=== PATIENT | male | born 1985 | race Caucasian/White ===

== ENCOUNTER 2020-06-08 08:20 | Emergency (ER) | payer MEDICARE, MEDICAID ==
[2020-06-08] MEDS ORDERED: Sodium Chloride 0.9% 1,000 ML IV SCH (08:45)
--- NOTE | 2020-06-08 10:55 | EDM.PDOC ---
ED HPI GENERAL MEDICAL PROBLEM - General Chief Complaint: Exposure to Heat or Cold Stated Complaint: HYPOTHERMIA Time Seen by Provider: 06/08/20 08:40 Source of Information: Reports: Patient History Limitations: Reports: No Limitations - History of Present Illness INITIAL COMMENTS - FREE TEXT/NARRATIVE: Patient presented to the ED because of cold exposure. He was ejected from her GF house due to a verbal argument and he stayed at the fish house overnight. He said he is feeling cold and have hypothermia but his temp was 97.3. He also use recreational drugs like marijuana, heroin, meth. He is otherwise asymptomatic. Lower Back Pain Score (Numeric/FACES): 6 Social & Family History - Tobacco Use Tobacco Use Status *Q: Current Every Day Tobacco User Years of Tobacco use: 15 Packs/Tins Daily: 1 - Caffeine Use Caffeine Use: Reports: Coffee, Soda - Recreational Drug Use Recreational Drug Use: Yes Drug Use in Last 12 Months: Yes Recreational Drug Type: Reports: Heroin, Marijuana/Hashish, Methamphetamine Recreational Drug Use Frequency: Daily ED ROS GENERAL - Review of Systems Review Of Systems: See Below Constitutional: Reports: No Symptoms HEENT: Reports: No Symptoms Respiratory: Reports: No Symptoms Cardiovascular: Reports: No Symptoms Endocrine: Reports: No Symptoms GI/Abdominal: Reports: No Symptoms : Reports: No Symptoms Musculoskeletal: Reports: No Symptoms Skin: Reports: No Symptoms Neurological: Reports: No Symptoms Psychiatric: Reports: No Symptoms ED EXAM, GENERAL - Physical Exam Exam: See Below Exam Limited By: No Limitations General Appearance: Alert, No Apparent Distress Ears: Normal External Exam, Normal Canal, Hearing Grossly Normal Nose: Normal Inspection, Normal Mucosa, No Blood Throat/Mouth: Normal Inspection, Normal Lips, Normal Teeth Head: Atraumatic, Normocephalic Neck: Normal Inspection, Supple, Non-Tender, Full Range of Motion Respiratory/Chest: No Respiratory Distress, Lungs Clear, Normal Breath Sounds Cardiovascular: Normal Peripheral Pulses, Regular Rate, Rhythm, No Edema, No Gallop, No JVD, No Murmur GI/Abdominal: Normal Bowel Sounds, Soft, Non-Tender, No Organomegaly Back Exam: Normal Inspection, Full Range of Motion, Other Extremities: Normal Inspection, Normal Range of Motion Course - Vital Signs Text/Narrative:: Labs/EKG/CXR result was discussed with patient Last Recorded V/S: Last Vital Signs Temp 36.5 C 06/08/20 08:33 Pulse 68 06/08/20 08:33 Resp 20 06/08/20 08:33 BP 154/95 H 06/08/20 08:33 Pulse Ox 100 06/08/20 08:33 - Orders/Labs/Meds Orders: Active Orders 24 hr Category Date Time Status EKG Documentation Completion [RC] ASDIRECTED Care 06/08/20 08:42 Active Sodium Chloride 0.9% [Normal Saline] 1,000 ml Med 06/08/20 08:45 Active IV ASDIRECTED Saline Lock Insert [OM.PC] Routine Oth 06/08/20 08:43 Ordered EKG 12 Lead [EK] Routine Ther 06/08/20 08:42 Ordered Medication Orders Sodium Chloride (Normal Saline) 1,000 mls @ 999 mls/hr IV ASDIRECTED YOLIE Last Admin: 06/08/20 09:00 Dose: 999 mls/hr Documented by: ESTEBAN Labs: Laboratory Tests 06/08/20 06/08/20 06/08/20 Range/Units 09:05 09:05 09:05 WBC 7.4 (3.2-10.1) x10-3/uL RBC 4.66 (3.90-5.90) x10(6)uL Hgb 14.0 (12.9-17.7) g/dL Hct 41.8 (38.3-50.1) % MCV 89.8 (80.8-98.7) fL MCH 30.0 (27.0-33.3) pg MCHC 33.4 (28.7-35.3) g/dL RDW 13.7 (12.4-15.0) % Plt Count 170 (117-477) x10(3)uL MPV 8.4 (6.7-11.0) fL Neut % (Auto) 79.3 H (40.3-71.8) % Lymph % (Auto) 13.5 L (15.8-45.3) % [place] % (Auto) 5.0 L (5.5-15.2) % Eos % (Auto) 1.4 (0.1-6.8) % Baso % (Auto) 0.8 (0.3-3.8) % Neut # (Auto) 5.9 (1.7-6.9) x10-3/uL Lymph # (Auto) 1.0 (0.5-4.5) x10-3/uL [place] # (Auto) 0.4 (0.0-1.2) x10-3/uL Eos # (Auto) 0.1 (0.0-0.6) x10-3/uL Baso # (Auto) 0.1 (0.0-0.3) x10-3/uL Sodium 140 (135-145) mmol/L Potassium 4.0 (3.5-5.3) mmol/L Chloride 102 (100-110) mmol/L Carbon Dioxide 29 (21-32) mmol/L BUN 14 (7-18) mg/dL Creatinine 0.9 (0.70-1.30) mg/dL Est Cr Clr Drug Dosing 128.14 mL/min Estimated GFR (MDRD) > 60 (>60) BUN/Creatinine Ratio 15.6 (9-20) Glucose 108 (80-116) mg/dL Calcium 8.1 L (8.6-10.2) mg/dL Total Bilirubin 0.6 (0.1-1.3) mg/dL AST 21 (5-25) IU/L ALT 33 (12-36) U/L Alkaline Phosphatase 76 (56-112) IU/L Total Protein 6.7 (6.0-8.0) g/dL Albumin 3.9 (3.5-5.2) g/dL Globulin 2.8 g/dL Albumin/Globulin Ratio 1.4 Urine Opiates Screen (NEGATIVE) Ur Oxycodone Screen (NEGATIVE) Ur Propoxyphene Screen (NEGATIVE) Ur Barbituates Screen (NEGATIVE) Ur Tricyclics Screen (NEGATIVE) Ur Phencyclidine Scrn (NEGATIVE) Ur Amphetamine Screen (NEGATIVE) Urine MDMA Screen (NEGATIVE) U Benzodiazepines Scrn (NEGATIVE) U Cocaine Metab Screen (NEGATIVE) U Marijuana (THC) Screen (NEGATIVE) Ethyl Alcohol < 0.03 (<0.03) % 06/08/20 Range/Units 09:49 WBC (3.2-10.1) x10-3/uL RBC (3.90-5.90) x10(6)uL Hgb (12.9-17.7) g/dL Hct (38.3-50.1) % MCV (80.8-98.7) fL MCH (27.0-33.3) pg MCHC (28.7-35.3) g/dL RDW (12.4-15.0) % Plt Count (117-477) x10(3)uL MPV (6.7-11.0) fL Neut % (Auto) (40.3-71.8) % Lymph % (Auto) (15.8-45.3) % [place] % (Auto) (5.5-15.2) % Eos % (Auto) (0.1-6.8) % Baso % (Auto) (0.3-3.8) % Neut # (Auto) (1.7-6.9) x10-3/uL Lymph # (Auto) (0.5-4.5) x10-3/uL [place] # (Auto) (0.0-1.2) x10-3/uL Eos # (Auto) (0.0-0.6) x10-3/uL Baso # (Auto) (0.0-0.3) x10-3/uL Sodium (135-145) mmol/L Potassium (3.5-5.3) mmol/L Chloride (100-110) mmol/L Carbon Dioxide (21-32) mmol/L BUN (7-18) mg/dL Creatinine (0.70-1.30) mg/dL Est Cr Clr Drug Dosing mL/min Estimated GFR (MDRD) (>60) BUN/Creatinine Ratio (9-20) Glucose (80-116) mg/dL Calcium (8.6-10.2) mg/dL Total Bilirubin (0.1-1.3) mg/dL AST (5-25) IU/L ALT (12-36) U/L Alkaline Phosphatase (56-112) IU/L Total Protein (6.0-8.0) g/dL Albumin (3.5-5.2) g/dL Globulin g/dL Albumin/Globulin Ratio Urine Opiates Screen Negative (NEGATIVE) Ur Oxycodone Screen Negative (NEGATIVE) Ur Propoxyphene Screen Negative (NEGATIVE) Ur Barbituates Screen Negative (NEGATIVE) Ur Tricyclics Screen Negative (NEGATIVE) Ur Phencyclidine Scrn Negative (NEGATIVE) Ur Amphetamine Screen Negative (NEGATIVE) Urine MDMA Screen Negative (NEGATIVE) U Benzodiazepines Scrn Negative (NEGATIVE) U Cocaine Metab Screen Negative (NEGATIVE) U Marijuana (THC) Screen Positive H (NEGATIVE) Ethyl Alcohol (<0.03) % Meds: Medications Generic Name Dose Route Start Last Admin Trade Name Amy PRN Reason Stop Dose Admin Sodium Chloride 1,000 mls @ 999 mls/hr 06/08/20 08:45 06/08/20 09:00 Normal Saline IV 999 mls/hr ASDIRECTED YOLIE Administration Departure - Departure Time of Disposition: 11:00 Disposition: Home, Self-Care 01 Condition: Good Clinical Impression: Polysubstance abuse, Cold exposure - Discharge Information Instructions: Substance Use Disorder and Mental Illness, Hypothermia Prevention Referrals: Jong Latham, [Primary Care Provider] - Forms: ED Department Discharge Additional Instructions: Please read discharge instructions on polysubstance abuse Quit using drugs Call the people who can help you as mentioned by MIKAELA Gomez Sepsis Event Note (ED) - Evaluation Sepsis Screening Result: No Definite Risk - Focused Exam Vital Signs: Vital Signs Temp Pulse Resp BP Pulse Ox 06/08/20 08:33 36.5 C 68 20 154/95 H 100 - My Orders Last 24 Hours: My Active Orders 06/08/20 08:42 EKG Documentation Completion [RC] ASDIRECTED EKG 12 Lead [EK] Routine 06/08/20 08:43 Saline Lock Insert [OM.PC] Routine 06/08/20 08:45 Sodium Chloride 0.9% [Normal Saline] 1,000 ml IV ASDIRECTED - Assessment/Plan Last 24 Hours: My Active Orders 06/08/20 08:42 EKG Documentation Completion [RC] ASDIRECTED EKG 12 Lead [EK] Routine 06/08/20 08:43 Saline Lock Insert [OM.PC] Routine 06/08/20 08:45 Sodium Chloride 0.9% [Normal Saline] 1,000 ml IV ASDIRECTED
== END 2020-06-08 11:30 | disposition home or self-care (01) ==
LOC: FB.ED 08:20
DX: T69.9XXA Effect of reduced temperature, unspecified, initial encounter (principal); F12.10 Cannabis abuse, uncomplicated; Z72.0 Tobacco use
CPT/HCPCS: 36415; 80053; 80305-QW; 80307; 85025; 93005; 99284-25; J7030

== ENCOUNTER 2020-10-20 21:24 | Emergency (ER) | payer MEDICAID, MEDICARE ==
--- NOTE | 2020-10-20 22:04 | EDM.PDOC ---
ED HPI GENERAL MEDICAL PROBLEM - General Stated Complaint: POSSIBLE UTI Time Seen by Provider: 10/20/20 21:50 Source of Information: Reports: Patient History Limitations: Reports: No Limitations - History of Present Illness INITIAL COMMENTS - FREE TEXT/NARRATIVE: Patient presented to the ED because of dysuria and penile discharge. He said he has been sleeping with 2 different women and doesn't if they have STD or not and want to be tested. - Related Data Allergies Allergy/AdvReac Type Severity Reaction Status Date / Time amoxicillin Allergy Hives Verified 10/20/20 22:07 codeine Allergy Hives Verified 10/20/20 22:07 divalproex sodium Allergy Hives Verified 10/20/20 22:07 [From Depakote] methylphenidate Allergy Agitation Verified 10/20/20 22:07 [From Ritalin] pemoline [From Cylert] Allergy Airway Verified 10/20/20 22:07 Tightness Penicillins Allergy Hives Verified 10/20/20 22:07 Home Meds: Home Meds Sulfamethoxazole/Trimethoprim [Bactrim Ds Tablet] 1 each PO BID #14 tablet 10/21/20 [Rx] Past Medical History Respiratory History: Reports: COPD Psychiatric History: Reports: Addiction, PTSD Social & Family History - Family History Family Medical History: No Pertinent Family History - Caffeine Use Caffeine Use: Reports: Coffee, Soda ED ROS GENERAL - Review of Systems Review Of Systems: See Below Constitutional: Reports: No Symptoms HEENT: Reports: No Symptoms Respiratory: Reports: No Symptoms Cardiovascular: Reports: No Symptoms Endocrine: Reports: No Symptoms GI/Abdominal: Reports: No Symptoms : Reports: No Symptoms Musculoskeletal: Reports: No Symptoms Skin: Reports: No Symptoms Neurological: Reports: No Symptoms Psychiatric: Reports: No Symptoms Hematologic/Lymphatic: Reports: No Symptoms ED EXAM, GENERAL - Physical Exam Exam: See Below Exam Limited By: No Limitations General Appearance: Alert, No Apparent Distress Ears: Normal External Exam, Normal Canal Nose: Normal Inspection, Normal Mucosa Throat/Mouth: Normal Inspection, Normal Lips Head: Atraumatic, Normocephalic Neck: Normal Inspection, Supple, Non-Tender Respiratory/Chest: No Respiratory Distress, Lungs Clear, Normal Breath Sounds Cardiovascular: Normal Peripheral Pulses, Regular Rate, Rhythm, No Edema GI/Abdominal: Normal Bowel Sounds, Soft, Non-Tender, No Organomegaly Back Exam: Normal Inspection, Full Range of Motion Extremities: Normal Inspection, Normal Range of Motion, Non-Tender Neurological: Alert, Oriented, CN II-XII Intact, Normal Cognition Psychiatric: Normal Affect, Normal Mood Skin Exam: Warm, Dry, Intact, Normal Color, No Rash Lymphatic: No Adenopathy Course - Vital Signs Text/Narrative:: UC-pending g/C probe-pending Last Recorded V/S: Last Vital Signs Temp 37.5 C 10/20/20 21:48 Pulse 91 10/20/20 21:48 Resp 18 10/20/20 21:48 BP 124/76 10/20/20 21:48 Pulse Ox 98 10/20/20 21:48 - Orders/Labs/Meds Orders: Active Orders 24 hr Category Date Time Status CHLAMYDIA/GC AMPLIFICATION Stat Lab 10/20/20 21:56 Received CULTURE URINE [RM] Stat Lab 10/20/20 21:56 Received Labs: Laboratory Tests 10/20/20 Range/Units 22:07 Urine Color Yellow (YELLOW) Urine Appearance Slightly cloudy (CLEAR) Urine pH 5.0 (5.0-6.5) Ur Specific [place] 1.030 H (1.010-1.025) Urine Protein 500 H (NEGATIVE) mg/dL Urine Glucose (UA) Normal (NORMAL) mg/dL Urine Ketones Negative (NEGATIVE) mg/dL Urine Occult Blood Moderate H (NEGATIVE) Urine Nitrite Negative (NEGATIVE) Urine Bilirubin Small H (NEGATIVE) Urine Urobilinogen 4 H (NEGATIVE) mg/dL Ur Leukocyte Esterase Moderate H (NEGATIVE) Urine RBC 5-10 H (0-5) Urine WBC 50-75 H (0-5) Ur Squamous Epith Cells Few H (NS,R,O) Urine Bacteria Few H (NS) Departure - Departure Time of Disposition: 22:10 Disposition: Home, Self-Care 01 Condition: Good Clinical Impression: STD exposure, UTI (urinary tract infection) - Discharge Information Prescriptions: Sulfamethoxazole/Trimethoprim [Bactrim Ds Tablet] 1 each PO BID #14 tablet Instructions: Urethritis, Adult, Urinary Tract Infection, Adult, [id number] Referrals: PCP,None [Primary Care Provider] - Forms: ED Department Discharge Additional Instructions: Please read discharge instructions on STD exposure WE will call you once we have the lab results Practice safe sex Bactrim DS twice daily for 7 days Sepsis Event Note (ED) - Focused Exam Vital Signs: Vital Signs Temp Pulse Resp BP Pulse Ox 10/20/20 21:48 37.5 C 91 18 124/76 98 - My Orders Last 24 Hours: My Active Orders 10/20/20 21:56 CHLAMYDIA/GC AMPLIFICATION Stat CULTURE URINE [] Stat - Assessment/Plan Last 24 Hours: My Active Orders 10/20/20 21:56 CHLAMYDIA/GC AMPLIFICATION Stat CULTURE URINE [] Stat
[2020-10-23 08:12] LABS: CHLAMYDIA TRACHOMATIS, NAA Negative (Negative); NEISSERIA GONORRHOEAE, NAA Negative (Negative)
== END 2020-10-20 22:12 | disposition home or self-care (01) ==
LOC: FB.ED 21:24
DX: N39.0 Urinary tract infection, site not specified (principal); J44.9 Chronic obstructive pulmonary disease, unspecified; Z88.0 Allergy status to penicillin; Z88.1 Allergy status to other antibiotic agents; Z88.5 Allergy status to narcotic agent; Z20.2 Contact with and (suspected) exposure to infections with a predominantly sexual mode of transmission
CPT/HCPCS: 81001; 87086; 87491; 87591; 99283

== ENCOUNTER 2020-11-23 04:27 | Emergency (ER) | payer MEDICARE ==
[2020-11-23] MEDS ORDERED: OLANZapine 10 MG Vial IM STA (05:08)
[2020-11-23] MEDS ORDERED: Sodium Chloride 0.9% 10 ML Syringe FLUSH PRN (05:08)
[2020-11-23] MEDS ORDERED: LORazepam 2 MG/ML SDV IVPUSH STA (05:08)
[2020-11-23] MEDS ORDERED: Ketorolac 30 MG/ML SDV IVPUSH STA (05:08)
[2020-11-23] MEDS ORDERED: Sodium Chloride 0.9% 1,000 ML IV SCH (05:15)
--- NOTE | 2020-11-23 06:12 | EDM.PDOC ---
ED HPI GENERAL MEDICAL PROBLEM - General Chief Complaint: Drug or Alcohol Abuse Stated Complaint: WITHDRAWLS Time Seen by Provider: 11/23/20 04:40 Source of Information: Reports: Patient History Limitations: Reports: No Limitations - History of Present Illness INITIAL COMMENTS - FREE TEXT/NARRATIVE: Patient presented to the ED because of anxiety, insomnia, bilateral lower extre mity pain and poor appetite. He said he use Meth daily but has not use one jose week and now he feels like he is withdrawing. He denies any hallucinations, suicidal or homicidal thoughts.. Generalized Pain Score (Numeric/FACES): 7 - Related Data Allergies Allergy/AdvReac Type Severity Reaction Status Date / Time amoxicillin Allergy Hives Verified 10/20/20 22:07 codeine Allergy Hives Verified 10/20/20 22:07 divalproex sodium Allergy Hives Verified 10/20/20 22:07 [From Depakote] methylphenidate Allergy Agitation Verified 10/20/20 22:07 [From Ritalin] pemoline [From Cylert] Allergy Airway Verified 10/20/20 22:07 Tightness Penicillins Allergy Hives Verified 10/20/20 22:07 Past Medical History Respiratory History: Reports: COPD Psychiatric History: Reports: Addiction, PTSD Social & Family History - Family History Family Medical History: No Pertinent Family History - Tobacco Use Tobacco Use Status *Q: Current Every Day Tobacco User Years of Tobacco use: 20 Packs/Tins Daily: 0.5 - Caffeine Use Caffeine Use: Reports: Soda - Recreational Drug Use Recreational Drug Use: Yes Drug Use in Last 12 Months: Yes Recreational Drug Type: Reports: Marijuana/Hashish, Methamphetamine Recreational Drug Use Frequency: Daily Recreational Drug Last Use: 11/23/20 ED ROS GENERAL - Review of Systems Review Of Systems: See Below Constitutional: Reports: Decreased Appetite HEENT: Reports: No Symptoms Respiratory: Reports: No Symptoms Cardiovascular: Reports: No Symptoms Endocrine: Reports: No Symptoms GI/Abdominal: Reports: No Symptoms : Reports: No Symptoms Musculoskeletal: Reports: Back Pain, Leg Pain Skin: Reports: No Symptoms Neurological: Reports: No Symptoms Psychiatric: Reports: Agitation, Anxiety ED EXAM, GENERAL - Physical Exam Exam: See Below Exam Limited By: No Limitations General Appearance: Alert, No Apparent Distress Ears: Normal External Exam, Normal Canal Nose: Normal Inspection, Normal Mucosa, No Blood Throat/Mouth: Normal Inspection, Normal Lips, Normal Teeth Head: Atraumatic, Normocephalic Neck: Normal Inspection, Supple, Non-Tender, Full Range of Motion Respiratory/Chest: No Respiratory Distress, Lungs Clear, Normal Breath Sounds Cardiovascular: Normal Peripheral Pulses, Regular Rate, Rhythm, No Edema, No Gallop, No JVD, No Murmur, No Rub GI/Abdominal: Normal Bowel Sounds, Soft, Non-Tender, No Organomegaly, No Distention, No Abnormal Bruit Back Exam: Normal Inspection, Full Range of Motion Extremities: Normal Inspection, Normal Range of Motion, Non-Tender, No Pedal Edema, Normal Capillary Refill Neurological: Alert, Oriented, CN II-XII Intact, Normal Cognition, Normal Gait, Normal Reflexes, No Motor/Sensory Deficits Psychiatric: Anxious, Tearful Skin Exam: Warm Course - Vital Signs Text/Narrative:: Lab result was reviewed and discussed with patient NS 1 L bolus Ativan 1 mg IV x1 Zyprexa 10 mg IM x1 Toradol 30 mg IV x1 Last Recorded V/S: Last Vital Signs Temp 36.6 C 11/23/20 04:38 Pulse 86 11/23/20 04:38 Resp 20 11/23/20 04:38 BP 143/82 H 11/23/20 04:38 Pulse Ox 95 11/23/20 04:38 - Orders/Labs/Meds Orders: Active Orders 24 hr Category Date Time Status COMPREHENSIVE METABOLIC PN,CMP [CHEM] Stat Lab 11/23/20 05:28 Results Sodium Chloride 0.9% [Normal Saline] 1,000 ml Med 11/23/20 05:15 Active IV ASDIRECTED Sodium Chloride 0.9% [Saline Flush] Med 11/23/20 05:08 Active 10 ml FLUSH ASDIRECTED PRN Saline Lock Insert [OM.PC] Routine Oth 11/23/20 05:08 Ordered Medication Orders Sodium Chloride (Normal Saline) 1,000 mls @ 999 mls/hr IV ASDIRECTED YOLIE Last Admin: 11/23/20 05:34 Dose: 999 mls/hr Documented by: LORNA Sodium Chloride (Sodium Chloride 0.9% 10 Ml Syringe) 10 ml FLUSH ASDIRECTED PRN PRN Reason: Keep Vein Open Labs: Laboratory Tests 11/23/20 11/23/20 11/23/20 Range/Units 05:25 05:28 05:28 WBC 6.8 (3.2-10.1) x10-3/uL RBC 4.15 (3.90-5.90) x10(6)uL Hgb 13.0 (12.9-17.7) g/dL Hct 37.7 L (38.3-50.1) % MCV 91.0 (80.8-98.7) fL MCH 31.3 (27.0-33.3) pg MCHC 34.4 (28.7-35.3) g/dL RDW 13.3 (12.4-15.0) % Plt Count 159 (117-477) x10(3)uL MPV 8.5 (6.7-11.0) fL Neut % (Auto) 60.2 (40.3-71.8) % Lymph % (Auto) 27.3 (15.8-45.3) % [place] % (Auto) 8.4 (5.5-15.2) % Eos % (Auto) 2.9 (0.1-6.8) % Baso % (Auto) 1.2 (0.3-3.8) % Neut # (Auto) 4.1 (1.7-6.9) x10-3/uL Lymph # (Auto) 1.8 (0.5-4.5) x10-3/uL [place] # (Auto) 0.6 (0.0-1.2) x10-3/uL Eos # (Auto) 0.2 (0.0-0.6) x10-3/uL Baso # (Auto) 0.1 (0.0-0.3) x10-3/uL Sodium 142 (135-145) mmol/L Potassium 3.8 (3.5-5.3) mmol/L Chloride 105 (100-110) mmol/L Carbon Dioxide 26 (21-32) mmol/L Urine Opiates Screen Negative (NEGATIVE) Ur Oxycodone Screen Negative (NEGATIVE) Ur Propoxyphene Screen Negative (NEGATIVE) Ur Barbituates Screen Negative (NEGATIVE) Ur Tricyclics Screen Negative (NEGATIVE) Ur Phencyclidine Scrn Negative (NEGATIVE) Ur Amphetamine Screen Positive H (NEGATIVE) Urine MDMA Screen Negative (NEGATIVE) U Benzodiazepines Scrn Negative (NEGATIVE) U Cocaine Metab Screen Negative (NEGATIVE) U Marijuana (THC) Screen Positive H (NEGATIVE) Ethyl Alcohol (<0.03) % 11/23/20 Range/Units 05:28 WBC (3.2-10.1) x10-3/uL RBC (3.90-5.90) x10(6)uL Hgb (12.9-17.7) g/dL Hct (38.3-50.1) % MCV (80.8-98.7) fL MCH (27.0-33.3) pg MCHC (28.7-35.3) g/dL RDW (12.4-15.0) % Plt Count (117-477) x10(3)uL MPV (6.7-11.0) fL Neut % (Auto) (40.3-71.8) % Lymph % (Auto) (15.8-45.3) % [place] % (Auto) (5.5-15.2) % Eos % (Auto) (0.1-6.8) % Baso % (Auto) (0.3-3.8) % Neut # (Auto) (1.7-6.9) x10-3/uL Lymph # (Auto) (0.5-4.5) x10-3/uL [place] # (Auto) (0.0-1.2) x10-3/uL Eos # (Auto) (0.0-0.6) x10-3/uL Baso # (Auto) (0.0-0.3) x10-3/uL Sodium (135-145) mmol/L Potassium (3.5-5.3) mmol/L Chloride (100-110) mmol/L Carbon Dioxide (21-32) mmol/L Urine Opiates Screen (NEGATIVE) Ur Oxycodone Screen (NEGATIVE) Ur Propoxyphene Screen (NEGATIVE) Ur Barbituates Screen (NEGATIVE) Ur Tricyclics Screen (NEGATIVE) Ur Phencyclidine Scrn (NEGATIVE) Ur Amphetamine Screen (NEGATIVE) Urine MDMA Screen (NEGATIVE) U Benzodiazepines Scrn (NEGATIVE) U Cocaine Metab Screen (NEGATIVE) U Marijuana (THC) Screen (NEGATIVE) Ethyl Alcohol < 0.03 (<0.03) % Meds: Medications Generic Name Dose Route Start Last Admin Trade Name Freq PRN Reason Stop Dose Admin Sodium Chloride 1,000 mls @ 999 mls/hr 11/23/20 05:15 11/23/20 05:34 Normal Saline IV 999 mls/hr ASDIRECTED YOLIE Administration Sodium Chloride 10 ml 11/23/20 05:08 Sodium Chloride 0.9% 10 Ml Syringe FLUSH ASDIRECTED PRN Keep Vein Open Discontinued Medications Generic Name Dose Route Start Last Admin Trade Name Freq PRN Reason Stop Dose Admin Ketorolac Tromethamine 30 mg 11/23/20 05:08 11/23/20 05:35 Ketorolac 30 Mg/Ml Sdv IVPUSH 11/23/20 05:09 30 mg NOW STA Administration Lorazepam 1 mg 11/23/20 05:08 11/23/20 05:35 Lorazepam 2 Mg/Ml Sdv IVPUSH 11/23/20 05:09 1 mg NOW STA Administration Olanzapine 10 mg 11/23/20 05:08 11/23/20 05:34 Olanzapine 10 Mg Vial IM 11/23/20 05:09 10 mg NOW STA Administration Departure - Departure Time of Disposition: 10:30 Disposition: Home, Self-Care 01 Condition: Good Clinical Impression: Polysubstance abuse, Dehydration - Discharge Information Referrals: PCP,None [Primary Care Provider] - Additional Instructions: Please read discharge instructions on polysubstance abuse Tell your doctor to refer you for chemical dependency treatment before it's too late Keep your appointment with Dr Latham @ 11:30 AM today Sepsis Event Note (ED) - Evaluation Sepsis Screening Result: No Definite Risk - Focused Exam Vital Signs: Vital Signs Temp Pulse Resp BP Pulse Ox 11/23/20 04:38 36.6 C 86 20 143/82 H 95 - My Orders Last 24 Hours: My Active Orders 11/23/20 05:08 Sodium Chloride 0.9% [Saline Flush] 10 ml FLUSH ASDIRECTED PRN Saline Lock Insert [OM.PC] Routine 11/23/20 05:15 Sodium Chloride 0.9% [Normal Saline] 1,000 ml IV ASDIRECTED 11/23/20 05:28 COMPREHENSIVE METABOLIC PN,CMP [CHEM] Stat - Assessment/Plan Last 24 Hours: My Active Orders 11/23/20 05:08 Sodium Chloride 0.9% [Saline Flush] 10 ml FLUSH ASDIRECTED PRN Saline Lock Insert [OM.PC] Routine 11/23/20 05:15 Sodium Chloride 0.9% [Normal Saline] 1,000 ml IV ASDIRECTED 11/23/20 05:28 COMPREHENSIVE METABOLIC PN,CMP [CHEM] Stat
== END 2020-11-23 10:45 | disposition home or self-care (01) ==
LOC: FB.ED 04:27
DX: F19.10 Other psychoactive substance abuse, uncomplicated (principal); E86.0 Dehydration; J44.9 Chronic obstructive pulmonary disease, unspecified; Z72.0 Tobacco use
CPT/HCPCS: 36415; 80053; 80305; 80307; 85025; 96372; 96374; 96375; 99284; J1885; J2060; J3490; J7030

== ENCOUNTER 2020-11-28 16:57 | Emergency (ER) | payer MEDICARE ==
[2020-11-28] MEDS ORDERED: LORazepam 2 MG/ML SDV IVPUSH ONE (17:17)
[2020-11-28] MEDS ORDERED: Sodium Chloride 0.9% 500 ML IV ONE (17:21)
[2020-11-28] MEDS ORDERED: Sodium Chloride 0.9% 1,000 ML IV SCH (17:30)
[2020-11-28] MEDS: LORazepam 2 MG/ML SDV IVPUSH ONE ×2 (17:36→18:00)
--- NOTE | 2020-11-28 17:44 | EDM.PDOC ---
ED HPI GENERAL MEDICAL PROBLEM - General Stated Complaint: WITHDRAWLS Time Seen by Provider: 11/28/20 17:05 Source of Information: Reports: Patient History Limitations: Reports: No Limitations - History of Present Illness INITIAL COMMENTS - FREE TEXT/NARRATIVE: 35-year-old male who presents to the emergency department via private vehicle secondary to difficulty breathing, sweating and "withdrawing from meth". He is quite agitated and reports that he last used meth 5 days ago and he reports that he is withdrawing and he feels "like crap all over" and "like I'm dying" and he reports pain all over his body. His thought processes appear to be quite disorganized. He is oriented to person and place he tells us that he is having no suicidal or homicidal ideations but also tells me that he does want to be . He is tearful and quite sad-appearing at times and then angry and on the verge of aggression and violence at other times. His O2 sats were difficult to read upon arrival but he appeared to be in the lower 80s on room air. He was placed on a mask at 6 L initially but he was unable to tolerate the mask and he was switched to nasal cannula. With the nasal cannula at 6 L/m we cannot get a good Plath and I am unsure what his sat is at this point. He denies any chest pain. He does admit to generalized body pains that he would rated as a 7-8/10. He has had some nausea but no vomiting. He apparently present this emergency department on 11/23/2020 secondary to "withdrawal" at that time as well and all of his labs were normal. He was minimally and hemodynamically and respiratory stable at that point and was discharged with outpatient follow-up with Dr. Latham. The patient was apparently put on Suboxone and he states that he took his first dose today. He states that he has been taking his medicines as he was directed. He denies any abdominal pain. He reports that difficulty breathing and sweating just began this afternoon. Patient was also complaining of double vision. There are no other associated signs or symptoms. There are no other modifying factors. Onset: Today Duration: Getting Worse Location: Reports: Generalized Quality: Reports: Other (Patient unable) Severity: Moderate (to severe) Improves with: Reports: None Worsens with: Reports: None Context: Reports: Other (As above) Associated Symptoms: Reports: No Other Symptoms (Except as above) Treatments TECHNICAL SOLUTIONS CONSULTANT: Reports: Other (see below) (Suboxone) - Related Data Allergies Allergy/AdvReac Type Severity Reaction Status Date / Time amoxicillin Allergy Hives Verified 10/20/20 22:07 codeine Allergy Hives Verified 10/20/20 22:07 divalproex sodium Allergy Hives Verified 10/20/20 22:07 [From Depakote] methylphenidate Allergy Agitation Verified 10/20/20 22:07 [From Ritalin] pemoline [From Cylert] Allergy Airway Verified 10/20/20 22:07 Tightness Penicillins Allergy Hives Verified 10/20/20 22:07 Home Meds: Home Meds Buprenorphine HCl/Naloxone HCl [Suboxone 4 mg-1 mg Sl Film] 8 mg SL DAILY 11/28/20 [History] Past Medical History Respiratory History: Reports: COPD Psychiatric History: Reports: Addiction (Amphetamine abuse), Anxiety, Depression, PTSD Social & Family History - Tobacco Use Tobacco Use Status *Q: Current Every Day Tobacco User - Caffeine Use Caffeine Use: Reports: Soda - Recreational Drug Use Recreational Drug Type: Reports: Methamphetamine - Living Situation & Occupation Occupation: Other (Homeless) ED ROS GENERAL - Review of Systems Review Of Systems: Unable To Obtain Reason Not Obtained: Agitation. Disorganized thoughts. ED EXAM, GENERAL - Physical Exam Exam: See Below Exam Limited By: No Limitations General Appearance: Alert, WD/WN, Severe Distress (Vital agitated. His O2 saturations are in the low 80s on room air.) Eye Exam: Bilateral Eye: EOMI, Normal Inspection (Sclerae are anicteric), PERRL Ears: Normal External Exam, Hearing Grossly Normal Ear Exam: Bilateral Ear: Auricle Normal Nose: Normal Inspection, Normal Mucosa, No Blood Throat/Mouth: Normal Voice, No Airway Compromise, Other (Dry mucous membranes) Head: Atraumatic, Normocephalic Neck: Normal Inspection, Supple, Non-Tender, Full Range of Motion Respiratory/Chest: Lungs Clear, Normal Breath Sounds, Chest Non-Tender, Other (Increased respiratory rate.) Cardiovascular: Normal Peripheral Pulses, Regular Rate, Rhythm, No Murmur Peripheral Pulses: 2+: Radial (L), Radial (R), Dorsalis Pedis (L), Dorsalis Pedis (R) GI/Abdominal: Normal Bowel Sounds, Soft, Non-Tender Back Exam: Normal Inspection Extremities: Normal Inspection, Normal Range of Motion, Non-Tender, No Pedal Edema, Other (Hands are pale and somewhat cool) Neurological: Alert, CN II-XII Intact, No Motor/Sensory Deficits Psychiatric: Other (Agitated) Skin Exam: Intact, Diaphoretic, Pallor (Pale in his hands and feet.) #1 Interpretation EKG Date: 11/28/20 Time: 17:47 Rhythm: NSR (Sinus bradycardia) Rate (Beats/Min): 44 [place]: Normal P-Wave: Present QRS: Normal ST-T: Normal QT: Prolonged Comparison: No Change (No significant change from EKG performed on 06/08/2020) #2 Interpretation EKG Date: 11/28/20 Time: 17:10 Rhythm: NSR Rate (Beats/Min): 57 [place]: Normal P-Wave: Present QRS: Normal ST-T: Normal QT: Prolonged Comparison: No Change (Despite artifact it is unchanged from EKG that was performed later.) EKG Interpretation Comments: Marked artifact made her mentation difficult. This EKG was repeated and is documented above. Course - Vital Signs Last Recorded V/S: Last Vital Signs Temp 35.3 C L 11/28/20 16:59 Pulse 59 L 11/28/20 16:59 Resp 30 H 11/28/20 16:59 BP 129/102 H 11/28/20 16:59 Pulse Ox 83 L 11/28/20 16:59 - Orders/Labs/Meds Orders: Active Orders 24 hr Category Date Time Status EKG Documentation Completion [RC] ASDIRECTED Care 11/28/20 17:19 Active Chest 1V Frontal [CR] Stat Exams 11/28/20 17:18 Taken CRP [C-REACTIVE PROTEIN] [CHEM] Stat Lab 11/28/20 19:09 Ordered DRUG SCREEN, URINE ALERE [URCHEM] Stat Lab 11/28/20 17:20 Ordered Sodium Chloride 0.9% [Normal Saline] 1,000 ml Med 11/28/20 17:30 Active IV ASDIRECTED Sodium Chloride 0.9% [Saline Flush] Med 11/28/20 17:18 Active 10 ml FLUSH ASDIRECTED PRN Peripheral IV Insertion Adult [OM.PC] Routine Oth 11/28/20 17:18 Ordered EKG 12 Lead [EK] Routine Ther 11/28/20 17:18 Ordered Medication Orders Sodium Chloride (Normal Saline) 1,000 mls @ 150 mls/hr IV ASDIRECTED YOLIE Sodium Chloride (Sodium Chloride 0.9% 10 Ml Syringe) 10 ml FLUSH ASDIRECTED PRN PRN Reason: Keep Vein Open Labs: Laboratory Tests 11/28/20 11/28/20 11/28/20 Range/Units 17:20 17:20 17:20 WBC 8.7 (3.2-10.1) x10-3/uL RBC 5.23 (3.90-5.90) x10(6)uL Hgb 16.1 D (12.9-17.7) g/dL Hct 47.7 D (38.3-50.1) % MCV 91.1 (80.8-98.7) fL MCH 30.7 (27.0-33.3) pg MCHC 33.7 (28.7-35.3) g/dL RDW 13.3 (12.4-15.0) % Plt Count 215 (117-477) x10(3)uL MPV 8.5 (6.7-11.0) fL Neut % (Auto) 63.5 (40.3-71.8) % Lymph % (Auto) 26.6 (15.8-45.3) % Elbert % (Auto) 7.7 (5.5-15.2) % Eos % (Auto) 0.8 (0.1-6.8) % Baso % (Auto) 1.4 (0.3-3.8) % Neut # (Auto) 5.5 (1.7-6.9) x10-3/uL Lymph # (Auto) 2.3 (0.5-4.5) x10-3/uL Elbert # (Auto) 0.7 (0.0-1.2) x10-3/uL Eos # (Auto) 0.1 (0.0-0.6) x10-3/uL Baso # (Auto) 0.1 (0.0-0.3) x10-3/uL D-Dimer, Quantitative (0.0-0.59) mg/LFEU POC VBG pH (7.32-7.43) pH Units POC VBG pCO2 (41-51) mmHg POC VBG HCO3 (21-29) mmol/L VBG Base Excess (-2-3) mmol/L O2 Delivery Device Sodium 143 (135-145) mmol/L Potassium 3.8 (3.5-5.3) mmol/L Chloride 100 D (100-110) mmol/L Carbon Dioxide 27 (21-32) mmol/L BUN 26 H (7-18) mg/dL Creatinine 1.3 (0.70-1.30) mg/dL Est Cr Clr Drug Dosing TNP Estimated GFR (MDRD) > 60 (>60) BUN/Creatinine Ratio 20.0 (9-20) Glucose 147 H (80-116) mg/dL Lactic Acid (0.4-2.0) mmol/L Calcium 9.8 (8.6-10.2) mg/dL Magnesium 2.0 (1.8-2.5) mg/dL Total Bilirubin 1.3 (0.1-1.3) mg/dL AST 27 H D (5-25) IU/L ALT 41 H D (12-36) U/L Alkaline Phosphatase 107 (56-112) IU/L Troponin I 5.4 (4.0-60.3) pg/mL Total Protein 8.3 H (6.0-8.0) g/dL Albumin 4.7 (3.5-5.2) g/dL Globulin 3.6 g/dL Albumin/Globulin Ratio 1.3 Ethyl Alcohol (<0.03) % 11/28/20 11/28/20 11/28/20 Range/Units 17:20 17:20 17:20 WBC (3.2-10.1) x10-3/uL RBC (3.90-5.90) x10(6)uL Hgb (12.9-17.7) g/dL Hct (38.3-50.1) % MCV (80.8-98.7) fL MCH (27.0-33.3) pg MCHC (28.7-35.3) g/dL RDW (12.4-15.0) % Plt Count (117-477) x10(3)uL MPV (6.7-11.0) fL Neut % (Auto) (40.3-71.8) % Lymph % (Auto) (15.8-45.3) % Elbert % (Auto) (5.5-15.2) % Eos % (Auto) (0.1-6.8) % Baso % (Auto) (0.3-3.8) % Neut # (Auto) (1.7-6.9) x10-3/uL Lymph # (Auto) (0.5-4.5) x10-3/uL Elbert # (Auto) (0.0-1.2) x10-3/uL Eos # (Auto) (0.0-0.6) x10-3/uL Baso # (Auto) (0.0-0.3) x10-3/uL D-Dimer, Quantitative 0.28 (0.0-0.59) mg/LFEU POC VBG pH (7.32-7.43) pH Units POC VBG pCO2 (41-51) mmHg POC VBG HCO3 (21-29) mmol/L VBG Base Excess (-2-3) mmol/L O2 Delivery Device Sodium (135-145) mmol/L Potassium (3.5-5.3) mmol/L Chloride (100-110) mmol/L Carbon Dioxide (21-32) mmol/L BUN (7-18) mg/dL Creatinine (0.70-1.30) mg/dL Est Cr Clr Drug Dosing Estimated GFR (MDRD) (>60) BUN/Creatinine Ratio (9-20) Glucose (80-116) mg/dL Lactic Acid 2.2 H* (0.4-2.0) mmol/L Calcium (8.6-10.2) mg/dL Magnesium (1.8-2.5) mg/dL Total Bilirubin (0.1-1.3) mg/dL AST (5-25) IU/L ALT (12-36) U/L Alkaline Phosphatase (56-112) IU/L Troponin I (4.0-60.3) pg/mL Total Protein (6.0-8.0) g/dL Albumin (3.5-5.2) g/dL Globulin g/dL Albumin/Globulin Ratio Ethyl Alcohol < 0.03 (<0.03) % / Range/Units 17:20 WBC (3.2-10.1) x10-3/uL RBC (3.90-5.90) x10(6)uL Hgb (12.9-17.7) g/dL Hct (38.3-50.1) % MCV (80.8-98.7) fL MCH (27.0-33.3) pg MCHC (28.7-35.3) g/dL RDW (12.4-15.0) % Plt Count (117-477) x10(3)uL MPV (6.7-11.0) fL Neut % (Auto) (40.3-71.8) % Lymph % (Auto) (15.8-45.3) % Elbert % (Auto) (5.5-15.2) % Eos % (Auto) (0.1-6.8) % Baso % (Auto) (0.3-3.8) % Neut # (Auto) (1.7-6.9) x10-3/uL Lymph # (Auto) (0.5-4.5) x10-3/uL [place]bert # (Auto) (0.0-1.2) x10-3/uL Eos # (Auto) (0.0-0.6) x10-3/uL Baso # (Auto) (0.0-0.3) x10-3/uL D-Dimer, Quantitative (0.0-0.59) mg/LFEU POC VBG pH 7.50 H (7.32-7.43) pH Units POC VBG pCO2 36 L (41-51) mmHg POC VBG HCO3 28 (21-29) mmol/L VBG Base Excess 5 H (-2-3) mmol/L O2 Delivery Device Nasal cannula Sodium (135-145) mmol/L Potassium (3.5-5.3) mmol/L Chloride (100-110) mmol/L Carbon Dioxide (21-32) mmol/L BUN (7-18) mg/dL Creatinine (0.70-1.30) mg/dL Est Cr Clr Drug Dosing Estimated GFR (MDRD) (>60) BUN/Creatinine Ratio (9-20) Glucose (80-116) mg/dL Lactic Acid (0.4-2.0) mmol/L Calcium (8.6-10.2) mg/dL Magnesium (1.8-2.5) mg/dL Total Bilirubin (0.1-1.3) mg/dL AST (5-25) IU/L ALT (12-36) U/L Alkaline Phosphatase (56-112) IU/L Troponin I (4.0-60.3) pg/mL Total Protein (6.0-8.0) g/dL Albumin (3.5-5.2) g/dL Globulin g/dL Albumin/Globulin Ratio Ethyl Alcohol (<0.03) % Meds: Medications Generic Name Dose Route Start Last Admin Trade Name Freq PRN Reason Stop Dose Admin Sodium Chloride 1,000 mls @ 150 mls/hr 11/28/20 17:30 Normal Saline IV ASDIRECTED YOLIE Sodium Chloride 10 ml 11/28/20 17:18 Sodium Chloride 0.9% 10 Ml Syringe FLUSH ASDIRECTED PRN Keep Vein Open Discontinued Medications Generic Name Dose Route Start Last Admin Trade Name Freq PRN Reason Stop Dose Admin Sodium Chloride 500 mls @ 999 mls/hr 11/28/20 17:21 11/28/20 17:28 Normal Saline IV 11/28/20 17:51 999 mls/hr .BOLUS ONE Administration Lorazepam 1 mg 11/28/20 17:17 11/28/20 17:26 Lorazepam 2 Mg/Ml Sdv IVPUSH 11/28/20 17:18 1 mg ONETIME ONE Administration Lorazepam 2 mg 11/28/20 17:27 Lorazepam 2 Mg/Ml Sdv IVPUSH 11/28/20 17:28 ONETIME ONE - Radiology Interpretation Free Text/Narrative:: Portable chest x-ray shows no acute disease. - Re-Assessments/Exams Free Text/Narrative Re-Assessment/Exam: 11/28/20 17:50: Patient has received 2 mg of Ativan IV now and he is much more calm. He is sleeping. He was having some O2 desaturations but it seemed to be related to mouth breathing and when he increased his respiratory rate and closed his mouth, his O2 saturations went up to 100%. His EKG was reassuringly normal. His blood cell count was normal. His hemoglobin was 16.1. His platelet count was normal. A serum electrolyte profile is normal. Magnesium was normal. A glucose was 147. A venous blood gas showed a pH of 7.50, PCO2 of 36. His lactic acid was 2.2. AST was 27 and the ALT was 41. Portable chest x-ray showed no acute pathology. He does appear to be breathing quite easily now and despite the earlier desaturations, I had the nursing staff place the patient room air and see what his sats do. We'll continue close monitoring of the patient. 11/28/20 18:15: His O2 saturations stay at 98-100 on room air when he is awakened and he becomes somewhat more agitated but he will quickly go back to sleep. He remains bradycardic in the 40s and 50s and sometimes the 30s his blood pressure is somewhat improved as well. His d-dimer was normal. We will continue to closely monitor the patient for now. 11/28/20 19:23: Patient remains quite somnolent. He will awaken with stimulation but cannot converse and quickly goes back to sleep. His rate is in the 50s. His blood pressure is in the 120-130/100 range. His O2 saturations for the most part are around 98-100% but sometimes he has what appears to be apneic episodes and his sats will drop to the 80s but when he is stimulated, he will quickly on back up to 98-100%. We will continue close monitoring and IV fluid hydration. It is unclear whether he will be able to clear this agitated delirium. If he continues with this, he may need admission but would need transfer to a facility with the ability to handle his need for higher level of care. At this time I will be turning the patient over to Dr. Abel. Please see his note in regard to the patient's further clinical course and disposition. Departure - Departure Time of Disposition: 19:24 Disposition: Still A Patient 30 Condition: Fair Clinical Impression: Agitation, Delirium, Methamphetamine abuse - Discharge Information Sepsis Event Note (ED) - Focused Exam Vital Signs: Vital Signs Temp Pulse Resp BP Pulse Ox 11/28/20 16:59 35.3 C L 59 L 30 H 129/102 H 83 L - My Orders Last 24 Hours: My Active Orders 11/28/20 17:18 Chest 1V Frontal [CR] Stat Sodium Chloride 0.9% [Saline Flush] 10 ml FLUSH ASDIRECTED PRN Peripheral IV Insertion Adult [OM.PC] Routine EKG 12 Lead [EK] Routine 11/28/20 17:19 EKG Documentation Completion [RC] ASDIRECTED 11/28/20 17:20 DRUG SCREEN, URINE ALERE [URCHEM] Stat 11/28/20 17:30 Sodium Chloride 0.9% [Normal Saline] 1,000 ml IV ASDIRECTED - Assessment/Plan Last 24 Hours: My Active Orders 11/28/20 17:18 Chest 1V Frontal [CR] Stat Sodium Chloride 0.9% [Saline Flush] 10 ml FLUSH ASDIRECTED PRN Peripheral IV Insertion Adult [OM.PC] Routine EKG 12 Lead [EK] Routine 11/28/20 17:19 EKG Documentation Completion [RC] ASDIRECTED 11/28/20 17:20 DRUG SCREEN, URINE ALERE [URCHEM] Stat 11/28/20 17:30 Sodium Chloride 0.9% [Normal Saline] 1,000 ml IV ASDIRECTED
[2020-11-28 18:02] LABS: BASE EXCESS VENOUS,POC 5 mmol/L (-2-3); HCO3 VENOUS,POC 28 mmol/L (21-29); PCO2 VENOUS,POC 36 mmHg (41-51)
[2020-11-28] MEDS ORDERED: Sodium Chloride 0.9% 1,000 ML IV ONE (20:29)
[2020-11-28] MEDS: Sodium Chloride 0.9% 10 ML Syringe FLUSH PRN (21:30)
[2020-11-29] MEDS ORDERED: Ondansetron 4 MG/2 ML SDV IVPUSH ONE (04:56)
[2020-11-29] MEDS ORDERED: Azithromycin 250 MG Tab PO ONE (04:56)
[2020-11-29] MEDS ORDERED: Doxycycline 100 MG Tab PO ONE (04:57)
[2020-11-29] MEDS: Sodium Chloride 0.9% 10 ML Syringe FLUSH PRN (05:56)
--- NOTE | 2020-11-29 07:32 | PCM.SN.2 ---
- Free Text/Narrative Note: c/o multiple nonspecific somatic sxs see Dr Banegas's note for details, pt signed out to me at 7p last night at change of shift pt stated he had a little to eat and drink and gotten little sleep in the past 3d he was quite exhausted and slept most of the night, he was alert and conversant when he woke up, vss, PO low at times altho this was due to incorrect reading from sensor, he was 99-100% on room air he did snore altho there were no pauses of sleep apnea no pain, no f/c/d his u/a showed 5-10 rbc, 5-10 wbc and trace bacteria, these may have been external contaminants, however pt has had STI exposures in past and was given azithro (has allergy to pcn) and doxy as a precaution UC pending, GC/chlamydia from urine pending pt with ketones in urine after 2 liter NS O: alert, conversant, lungs clear without cough or dyspnea, CV RRR, no tachy MDM: urine tox showed amphetamines, benzo (given 2 mg Ativan) and THC, pt showed signs of physical exhaustion and meth toxicity and dehydration on arrival, all of which improved overnight, CRP neg, no signs of infection other than possible STI ASSESS: 1. meth toxicity 2. THC use 3. physical exhaustion 4. dehydration 5. pyuria, contaminant vs possible STI PLAN: doxy x 1w
[2020-11-30 23:09] LABS: CHLAMYDIA TRACHOMATIS, NAA Negative (Negative); NEISSERIA GONORRHOEAE, NAA Negative (Negative)
== END 2020-11-29 08:05 | disposition home or self-care (01) ==
LOC: FB.ED 16:57
DX: F15.10 Other stimulant abuse, uncomplicated (principal); R45.1 Restlessness and agitation; R41.0 Disorientation, unspecified; J44.9 Chronic obstructive pulmonary disease, unspecified; R00.1 Bradycardia, unspecified; Z72.0 Tobacco use; Z88.0 Allergy status to penicillin; Z88.5 Allergy status to narcotic agent; Z88.8 Allergy status to other drugs, medicaments and biological substances; Z79.899 Other long term (current) drug therapy
CPT/HCPCS: 36415; 71045; 80053; 80305-QW; 80307; 81001; 83605; 83735; 84484; 85025; 85379; 86140; 87086; 87088; 87491; 87591; 93005; 96374; 96375; 96376; 99285-25; A9270-GY; J2060; J2405; J7030; J7040

== ENCOUNTER 2021-01-07 02:09 | Emergency (ER) | payer MEDICARE ==
--- NOTE | 2021-01-07 02:42 | EDM.PDOCBH ---
ED HPI GENERAL MEDICAL PROBLEM - General Stated Complaint: SUICIDAL Time Seen by Provider: 01/07/21 02:35 Source of Information: Reports: Patient History Limitations: Reports: Other (Patient is agitated) - History of Present Illness INITIAL COMMENTS - FREE TEXT/NARRATIVE: 35-year-old male who presents to the emergency department via taxicab reporting that he is homeless now and that he was kicked out of the home that he was living in tonight. Oliva that he uses methamphetamines, marijuana and drinks alcohol every day. He reports that he has basically in hiding us from the people that he has been living with an tonight, fairly he was found by one of the people that he lives with [facility] and he apparently had been using drugs just prior to this and she knew that he had been using drugs because of his previous history of drug use and told him that he had to leave her house tonight. He reports that he was quite upset about this and he tells us that the ship surveyor were called and they sent him in a taxicab over here. He tells me that he wants to go into rehabilitation and another time she is telling me that he is having thoughts of wanting to kill himself and at other times he told other em ergency department staff that he would go in and get his guns and he would kill everyone in here and then just start killing people. He is quite agitated and he is verbally abusive with the emergency Department staff and verbally threatening to the emergency Department staff. He does admit to using methamphetamines tonight and marijuana. Was able to interview the patient and to examine him but following this, when I was putting in orders to evaluate the patient he became more and more agitated and angry apparently he threatened the nursing and registration staff "telling them that he was going to get his guns and he was going "to kill everyone in this place"and he would "shoot to place up". At this point, the nursing staff called the asking for help and during this time the patient gathered his stuff and left. He was being confrontational and verbally aggressive with posturing and we were in no position to confront this patient who was threatening such a level of violence against us. As he was leaving the building, we were discussing this with the police and they were coming to investigate and attempt to find this person. 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: Other (see below) (Nothing) - Related Data Allergies Allergy/AdvReac Type Severity Reaction Status Date / Time amoxicillin Allergy Hives Verified 10/20/20 22:07 codeine Allergy Hives Verified 10/20/20 22:07 divalproex sodium Allergy Hives Verified 10/20/20 22:07 [From Depakote] methylphenidate Allergy Agitation Verified 10/20/20 22:07 [From Ritalin] pemoline [From Cylert] Allergy Airway Verified 10/20/20 22:07 Tightness Penicillins Allergy Hives Verified 10/20/20 22:07 Home Meds: Home Meds Buprenorphine HCl/Naloxone HCl [Suboxone 4 mg-1 mg Sl Film] 8 mg SL DAILY 11/28/20 [History] Doxycycline [Vibra-Tabs] 100 mg PO BID #13 tablet 11/29/20 [Rx] Past Medical History Respiratory History: Reports: COPD Psychiatric History: Reports: Addiction (Amphetamine abuse), Anxiety, Depression, PTSD - Past Surgical History Other Surgical History Comment: Pilonidal cystectomy Social & Family History - Tobacco Use Tobacco Use Status *Q: Current Every Day Tobacco User - Caffeine Use Caffeine Use: Reports: Coffee, Energy Drinks, Soda - Alcohol Use Alcohol Use History: Yes Alcohol Use Frequency: Daily - Recreational Drug Use Recreational Drug Use: Yes Drug Use in Last 12 Months: Yes Recreational Drug Type: Reports: Marijuana/Hashish, Methamphetamine Recreational Drug Use Comment: He states he uses these drugs daily. - Living Situation & Occupation Occupation: Other (Homeless) ED ROS GENERAL - Review of Systems Review Of Systems: See Below Constitutional: Denies: Fever, Chills HEENT: Denies: Throat Pain Respiratory: Denies: Shortness of Breath, Cough Cardiovascular: Denies: Chest Pain, Lightheadedness GI/Abdominal: Denies: Diarrhea : Denies: Dysuria Musculoskeletal: Reports: Other (Reports "aching all over") Skin: Denies: Wound Neurological: Denies: Headache Psychiatric: Reports: Anxiety, Homicidal Ideation, Mood Lability Hematologic/Lymphatic: Denies: Easy Bleeding, Easy Bruising ED EXAM, BEHAVIORAL HEALTH - Physical Exam Exam: See Below General Appearance: Alert, WD/WN, Anxious, Other (Agitated. Animated) Eye Exam: Bilateral Eye: EOMI, Normal Inspection, PERRL Ears: Normal External Exam, Hearing Grossly Normal Nose: Normal Inspection, Normal Mucosa, No Blood Throat/Mouth: Normal Inspection, Normal Oropharynx, Normal Voice Head: Atraumatic, Normocephalic Neck: Normal Inspection, Supple, Non-Tender Respiratory/Chest: No Respiratory Distress, Lungs Clear, Normal Breath Sounds, No Accessory Muscle Use Cardiovascular: Normal Peripheral Pulses GI/Abdominal: Normal Bowel Sounds Back Exam: Normal Inspection, Full Range of Motion Extremities: Normal Inspection, Normal Range of Motion, Non-Tender, No Pedal Edema, Normal Capillary Refill Neurological: Alert, CN II-XII Intact, No Motor/Sensory Deficits Psychiatric: Alert, Agitated Skin Exam: Warm, Dry, Intact, Normal color, No rash Departure - Departure Time of Disposition: 02:09 Disposition: Eloped 07 Clinical Impression: Methamphetamine abuse, Polysubstance abuse, Aggressive behavior - Discharge Information Referrals: PCP,Unknown [Primary Care Provider] -
== END 2021-01-07 03:02 | disposition left against medical advice (07) ==
LOC: FB.ED 02:09
DX: F15.10 Other stimulant abuse, uncomplicated (principal); F19.10 Other psychoactive substance abuse, uncomplicated; F91.9 Conduct disorder, unspecified; J44.9 Chronic obstructive pulmonary disease, unspecified; Z72.0 Tobacco use; Z88.0 Allergy status to penicillin; Z88.5 Allergy status to narcotic agent; Z88.8 Allergy status to other drugs, medicaments and biological substances
CPT/HCPCS: 99284

== ENCOUNTER 2024-12-01 16:22 | Emergency (ER) | payer MEDICARE, OTHER | END 2024-12-01 17:30 | LOC: FB.ED 16:22 | DX: I87.2 Venous insufficiency (chronic) (peripheral) (principal); J44.9 Chronic obstructive pulmonary disease, unspecified; Z79.899 Other long term (current) drug therapy; Z88.0 Allergy status to penicillin; Z88.5 Allergy status to narcotic agent; Z88.8 Allergy status to other drugs, medicaments and biological substances | CPT/HCPCS: 99283 ==